=== PATIENT | male | born 1960 | race Two or more races ===

== ENCOUNTER → 2019-01-28 | Outpatient (CLI) | payer OTHER | END | disposition home or self-care (01) | LOC: RADMN 08:35 | PROVIDERS: ATTEND Internal Medicine Cardiovascular Disease | DX: I50.9 Heart failure, unspecified (principal) | CPT/HCPCS: 78472; A9560 ==

== ENCOUNTER 2019-06-25 12:43 | Emergency (ER) | payer OTHER ==
[~2019-06-25] VITALS: Ht 167.6 cm; Wt 72.7 kg
[2019-06-25 13:00] LABS: GLUCOSE,POINT OF CARE 105 MG/DL (70-110)
[2019-06-25] MEDS ORDERED: SACU1TAB7 PO (14:20)
[2019-06-25] MEDS ORDERED: CARB1TAB41 PO (14:20)
[2019-06-25] MEDS ORDERED: BENZ1TAB10 PO (14:20)
[2019-06-25] MEDS ORDERED: SERT100T12 PO (14:20)
[2019-06-25] MEDS ORDERED: TAMS-13 PO (14:20)
[2019-06-25] MEDS ORDERED: TRAZ-220 PO (14:20)
[2019-06-25] MEDS ORDERED: OMEP20 PO (14:20)
[2019-06-25] MEDS ORDERED: ATOR40TA28 PO (14:20)
[2019-06-25] MEDS ORDERED: CARV12 PO (14:20)
[2019-06-25] MEDS ORDERED: ASPI-1182 PO (14:20)
[2019-06-25 15:30] VITALS: BP 118/83
== END 2019-06-25 15:45 | disposition home or self-care (01) ==
LOC: EMS 12:45
DX: G20 Parkinson's disease (principal); I50.9 Heart failure, unspecified; E78.00 Pure hypercholesterolemia, unspecified; K21.9 Gastro-esophageal reflux disease without esophagitis; F32.9 Major depressive disorder, single episode, unspecified; Z76.0 Encounter for issue of repeat prescription; Z79.899 Other long term (current) drug therapy; Z79.82 Long term (current) use of aspirin